=== PATIENT | male | born 1990 | race African-American/Black ===

== ENCOUNTER 2023-11-22 14:41 | Emergency (ER) | payer OTHER ==
[~2023-11-22] VITALS: Ht 175.3 cm; Wt 85.3 kg
[2023-11-22 14:55] VITALS: BP 112/67; PULSE 78; RESP 20; O2SAT 100
[2023-11-22] MEDS ORDERED: 0.9%NACL 1000ML 1,000 ML IV ONE (15:00)
[2023-11-22] MEDS ORDERED: MAG/ALUM/SIMETH 30 ML UDCUP PO ONE (15:00)
== END 2023-11-22 17:15 | disposition home or self-care (01) ==
LOC: EDH 14:41
DX: R45.850 Homicidal ideations (principal); F20.9 Schizophrenia, unspecified; F31.9 Bipolar disorder, unspecified
CPT/HCPCS: 99281